=== PATIENT | female | born 1980 | race Caucasian/White ===

== ENCOUNTER 2018-11-05 09:08 | Inpatient (IN) | payer MEDICAID ==
[~2018-11-05] VITALS: Ht 157.5 cm; Wt 65.3 kg
[2018-11-05 09:12] VITALS: Ht 157.5 cm; Wt 65.3 kg
[2018-11-05 10:10] LABS: UA SPECIFIC GRAVITY >=1.030 (1.005-1.035); microscopic required? YES; urine erythrocyte 1+ (NEGATIVE)
[2018-11-05 10:27] LABS: CALCIUM 8.7 mg/dL (8.5-10.1); CARBON DIOXIDE 25.8 mmol/L (21-32); CHLORIDE SERUM 101 mmol/L (98-107); CREATININE SERUM 0.7 mg/dL (0.6-1.0); GFR1 > 60 mL/min; GLUCOSE SERUM 103 mg/dL (74-106); POTASSIUM SERUM 3.6 mmol/L (3.5-5.1); SODIUM SERUM 137 mmol/L (136-145)
[2018-11-05 10:32] LABS: ALBUMIN 4.3 g/dL (3.4-5.0); ALKALINE PHOSPHATASE 88 U/L (46-116); ALT/SGPT 23 U/L (14-59); AST/SGOT 17 U/L (15-37); BILIRUBIN TOTAL 0.4 mg/dL (0.20-1.00); LIPASE 141 IU/L (73-393)
[2018-11-05 10:36] LABS: TOTAL PROTEIN, SERUM 8.6 g/dL (6.4-8.2)
[2018-11-05 10:38] LABS: BASOPHIL % 0.4 % (0-2); PLATELET COUNT 310 x10^3mcL (130-400)
[2018-11-05 10:42] LABS: RED CELL DISTRIBUTION WIDTH 16.2 % (11.5-14.5)
[2018-11-05] MEDS ORDERED: LOMOTIL1 TAB PO (14:24)
[2018-11-05] MEDS ORDERED: TRAMADOL HCL50 MG PO (14:24)
[2018-11-05] MEDS ORDERED: CIPRO250 MG PO (14:24)
[2018-11-05 16:59] LABS: AMPHETAMINE QUAL UR NONE DETECTED (See below)
[2018-11-05 17:03] LABS: MAGNESIUM 2.5 mg/dL (1.8-2.4); PHOSPHOROUS 3.9 mg/dL (2.5-4.9)
[2018-11-05 17:10] LABS: T3 TOTAL 1.5 ng/mL
[2018-11-05 17:19] VITALS: BP 126/87
[2018-11-05 17:29] LABS: FREE T4 1.28 ng/dL (0.76-1.46)
[2018-11-05 17:30] LABS: FREE THYROXINE INDEX 4.6 ug/dL (1.4-4.5); T4(THYROXINE) 13.6 ug/dL (4.7-13.3)
[2018-11-05 21:21] VITALS: BP 130/71
[2018-11-06 05:08] VITALS: BP 132/87
[2018-11-06 06:09] LABS: BASOPHIL % 0.3 % (0-2); PLATELET COUNT 297 x10^3mcL (130-400)
[2018-11-06 06:58] LABS: CARBON DIOXIDE 21.7 mmol/L (21-32); CHLORIDE SERUM 103 mmol/L (98-107); CREATININE SERUM 0.6 mg/dL (0.6-1.0); GFR1 > 60 mL/min; GLUCOSE SERUM 102 mg/dL (74-106); MAGNESIUM 2.4 mg/dL (1.8-2.4); POTASSIUM SERUM 3.7 mmol/L (3.5-5.1); SODIUM SERUM 137 mmol/L (136-145)
[2018-11-06 08:25] VITALS: BP 118/66
[2018-11-06 13:00] VITALS: BP 141/89
[2018-11-06 17:05] VITALS: BP 123/71
[2018-11-06 19:51] VITALS: BP 126/79
[2018-11-07 04:42] LABS: BASOPHIL % 0.1 % (0-2); PLATELET COUNT 303 x10^3mcL (130-400)
[2018-11-07 04:43] LABS: RED CELL DISTRIBUTION WIDTH 15.2 % (11.5-14.5)
[2018-11-07 04:50] LABS: CALCIUM 7.7 mg/dL (8.5-10.1); CARBON DIOXIDE 19.1 mmol/L (21-32); CHLORIDE SERUM 104 mmol/L (98-107); CREATININE SERUM 0.5 mg/dL (0.6-1.0); GFR1 > 60 mL/min; GLUCOSE SERUM 101 mg/dL (74-106); POTASSIUM SERUM 3.4 mmol/L (3.5-5.1); SODIUM SERUM 136 mmol/L (136-145)
[2018-11-07 06:02] VITALS: BP 134/70
[2018-11-07 17:16] VITALS: BP 119/77
[2018-11-07 20:52] VITALS: BP 119/69
[2018-11-08 05:31] VITALS: BP 121/70
[2018-11-08 07:09] LABS: CALCIUM 7.6 mg/dL (8.5-10.1); CARBON DIOXIDE 22.3 mmol/L (21-32); CHLORIDE SERUM 104 mmol/L (98-107); CREATININE SERUM 0.5 mg/dL (0.6-1.0); GFR1 > 60 mL/min; GLUCOSE SERUM 98 mg/dL (74-106); POTASSIUM SERUM 3.2 mmol/L (3.5-5.1); SODIUM SERUM 138 mmol/L (136-145)
[2018-11-08 07:49] LABS: BASOPHIL % 0.3 % (0-2); PLATELET COUNT 264 x10^3mcL (130-400)
[2018-11-08 07:53] LABS: RED CELL DISTRIBUTION WIDTH 15.1 % (11.5-14.5)
[2018-11-08 09:00] VITALS: BP 125/73
[2018-11-08 13:15] VITALS: BP 110/56
[2018-11-08 17:27] VITALS: BP 118/71
[2018-11-08 20:31] VITALS: BP 117/77
[2018-11-09 04:58] VITALS: BP 113/72
[2018-11-09 06:34] LABS: BASOPHIL % 0.4 % (0-2); PLATELET COUNT 264 x10^3mcL (130-400)
[2018-11-09 06:40] LABS: RED CELL DISTRIBUTION WIDTH 16.8 % (11.5-14.5)
[2018-11-09 06:52] LABS: CARBON DIOXIDE 27.2 mmol/L (21-32); CHLORIDE SERUM 103 mmol/L (98-107); CREATININE SERUM 0.5 mg/dL (0.6-1.0); GFR1 > 60 mL/min; GLUCOSE SERUM 112 mg/dL (74-106); POTASSIUM SERUM 3.3 mmol/L (3.5-5.1); SODIUM SERUM 136 mmol/L (136-145)
[2018-11-09 08:52] VITALS: BP 110/71
[2018-11-09 16:53] VITALS: BP 110/63
[2018-11-09 20:06] VITALS: BP 116/73
[2018-11-10 06:05] VITALS: BP 98/63
[2018-11-10 07:00] LABS: CALCIUM 8.1 mg/dL (8.5-10.1); CARBON DIOXIDE 26.3 mmol/L (21-32); CHLORIDE SERUM 107 mmol/L (98-107); CREATININE SERUM 0.5 mg/dL (0.6-1.0); GFR1 > 60 mL/min; GLUCOSE SERUM 103 mg/dL (74-106); POTASSIUM SERUM 3.7 mmol/L (3.5-5.1); SODIUM SERUM 141 mmol/L (136-145)
[2018-11-10 07:05] LABS: BASOPHIL % 0.6 % (0-2); PLATELET COUNT 275 x10^3mcL (130-400)
[2018-11-10 08:25] VITALS: BP 96/60
[2018-11-10 09:19] LABS: PATH REVIEW for HEMA NO
[2018-11-10 12:15] VITALS: BP 111/73
[2018-11-10] MEDS ORDERED: NOR10T PO (12:55)
[2018-11-10 13:00] VITALS: BP 111/73
== END 2018-11-10 15:27 | disposition home or self-care (01) | DRG 231 ==
LOC: ED 09:08 → MU 16:23
PROVIDERS: Emergency Medicine; Internal Medicine; Internal Medicine Gastroenterology; ADMIT General Practice
PROC: 0DBL8ZX Excision of Transverse Colon, Via Natural or Artificial Opening Endoscopic, Diagnostic (ICD-10-PCS; principal; 2018-11-06 11:30)
PROC: 0DTL0ZZ Resection of Transverse Colon, Open Approach (ICD-10-PCS; 2018-11-07)
DX: C18.5 Malignant neoplasm of splenic flexure (principal); K65.9 Peritonitis, unspecified; K59.00 Constipation, unspecified; K52.9 Noninfective gastroenteritis and colitis, unspecified; E83.41 Hypermagnesemia; D50.9 Iron deficiency anemia, unspecified; E78.5 Hyperlipidemia, unspecified; E87.6 Hypokalemia; Z68.26 Body mass index [BMI] 26.0-26.9, adult
CPT/HCPCS: 45380; 84439; 88344; 88361; 97110-GP; 97116-GP; 97530-GP; J0171; J0330; J0694; J1170; J1200; J1610; J1885; J1956; J2250; J2270; J2310; J2405; J2543; J2704; J2710; J2916; J3010; J3480; J3490; J7030; J7050; J7120; Q0092; Q9966; Q9967